=== PATIENT | female | born 1945 | race Caucasian/White ===

== ENCOUNTER → 2018-10-16 | Outpatient (CLI) | payer OTHER, MEDICARE ==
[~2018-10-16] MED LIST: REGADENOSON 0.4 MG/5 ML SYRINGE ONE
== END | disposition home or self-care (01) ==
LOC: CFH 12:19
PROVIDERS: ATTEND Internal Medicine Cardiovascular Disease
DX: I25.9 Chronic ischemic heart disease, unspecified (principal); R07.89 Other chest pain
CPT/HCPCS: 78452; 93017; A9502; J2785

== ENCOUNTER 2018-11-12 11:07 | Day surgery (SDC) | payer OTHER, MEDICARE ==
[2018-11-10 15:01] VITALS: BP 110/59
[2018-11-10 15:18] LABS: BASOPHILS # (AUTO) 0.04 x10^3/uL (0-0.1); BASOPHILS % (AUTO) 1 % (0-1); EOSINOPHILS # (AUTO) 0.03 x10^3/uL (0-0.4); EOSINOPHILS % (AUTO) 0 % (1-7); LYMPHOCYTES % (AUTO) 21 % (22-44); MD NO; MEAN CORPUSCULAR HEMOGLOBIN 32.7 pg (27.0-34.8); MEAN CORPUSCULAR HGB CONC 34.4 g/dL (32.4-35.8); MEAN PLATELET VOLUME 9.5 fL (7.4-10.4); MONOCYTES # (AUTO) 0.35 x10^3/uL (0.2-0.8); MONOCYTES % (AUTO) 5 % (2-9); NEUTROPHILS # (AUTO) 5.24 x10^3/uL (1.8-6.8); NEUTROPHILS % (AUTO) 73 % (42-75); PLATELET COUNT 181 x10^3/uL (130-400); RED BLOOD COUNT 4.68 x10^6/uL (3.82-5.3); RED CELL DISTRIBUTION WIDTH 13.4 % (9.6-15.2)
[2018-11-10 15:25] LABS: ANION GAP 5 mmol/L (5-15); CALCIUM 9.1 mg/dL (8.5-10.1); CHLORIDE 108 mmol/L (98-107); CREATININE 1.65 mg/dL (0.55-1.02)
[2018-11-10 15:59] LABS: INTERNATIONAL NORMALIZED RATIO 0.96 (0.93-1.1); PROTHROMBIN TIME 10.1 Seconds (9.6-11.5)
[~2018-11-12] VITALS: Ht 160 cm; Wt 70.5 kg
[~2018-11-12 11:07] MED LIST changes: +ASPI-496 PO; +ATOR40TA PO; +CLON0.1T22 PO; +FURO20TA3 PO; +GLIP10TA13 PO; +LOSA50TA14 PO; +POTA10TA5 PO; -REGADENOSON 0.4 MG/5 ML SYRINGE ONE; +SERT50TA28 PO; +SODIUM CHLORIDE 0.9% 1,000 ML IV SCH; +SPIR25TA5 PO
[2018-11-12] MEDS ORDERED: DIPHENHYDRAMINE 50 MG/ML, 1ML ONE (12:44)
[2018-11-12] MEDS ORDERED: FENTANYL PF 100 MCG/2ML ONE (12:44)
[2018-11-12] MEDS ORDERED: MIDAZOLAM 1 MG/ML, 2ML ONE (12:44)
[2018-11-12] MEDS ORDERED: LIDOCAINE 1%, 20ML ONE (12:44)
[2018-11-12] MEDS ORDERED: SODIUM CHLORIDE 0.9% 1,000 ML IV SCH (13:56)
== END 2018-11-12 16:35 | disposition home or self-care (01) ==
LOC: CACL 11:07
PROVIDERS: ATTEND Internal Medicine Cardiovascular Disease
DX: I25.119 Atherosclerotic heart disease of native coronary artery with unspecified angina pectoris (principal); E11.22 Type 2 diabetes mellitus with diabetic chronic kidney disease; I12.9 Hypertensive chronic kidney disease with stage 1 through stage 4 chronic kidney disease, or unspecified chronic kidney disease; N18.3 Chronic kidney disease, stage 3 (moderate); E78.2 Mixed hyperlipidemia; F17.210 Nicotine dependence, cigarettes, uncomplicated; Z79.82 Long term (current) use of aspirin; Z79.84 Long term (current) use of oral hypoglycemic drugs; Z88.5 Allergy status to narcotic agent; Z88.8 Allergy status to other drugs, medicaments and biological substances
CPT/HCPCS: 36415; 71046; 80048; 85025; 85610; 85730; 93458; 99156; C1769; C1894; J1200; J2250; J3010; J3490; Q9967

== ENCOUNTER 2018-11-23 14:44 | Inpatient (IN) | payer OTHER, MEDICARE ==
[~2018-11-23] VITALS: Ht 160 cm; Wt 70.8 kg
[~2018-11-23 14:44] MED LIST changes: -SODIUM CHLORIDE 0.9% 1,000 ML IV SCH
[2018-11-23] MEDS ORDERED: ASPIRIN 81 MG TABLET CHEW PO ONE (15:30)
[2018-11-23 15:45] LABS: BASOPHILS # (AUTO) 0.04 x10^3/uL (0-0.1); BASOPHILS % (AUTO) 1 % (0-1); EOSINOPHILS # (AUTO) 0.07 x10^3/uL (0-0.4); EOSINOPHILS % (AUTO) 1 % (1-7); LYMPHOCYTES # (AUTO) 1.81 x10^3/uL (1-3.4); LYMPHOCYTES % (AUTO) 24 % (22-44); MD NO; MEAN CORPUSCULAR HEMOGLOBIN 32.8 pg (27.0-34.8); MEAN CORPUSCULAR HGB CONC 34.6 g/dL (32.4-35.8); MEAN CORPUSCULAR VOLUME 94.8 fL (80-100); MEAN PLATELET VOLUME 9.6 fL (7.4-10.4); MONOCYTES # (AUTO) 0.48 x10^3/uL (0.2-0.8); MONOCYTES % (AUTO) 6 % (2-9); NEUTROPHILS # (AUTO) 5.21 x10^3/uL (1.8-6.8); NEUTROPHILS % (AUTO) 69 % (42-75); PLATELET COUNT 176 x10^3/uL (130-400); RED BLOOD COUNT 4.31 x10^6/uL (3.82-5.3); RED CELL DISTRIBUTION WIDTH 13.9 % (9.6-15.2)
[2018-11-23] MEDS ORDERED: ASPIRIN 81 MG TABLET CHEW ONE (15:45)
[2018-11-23 15:58] LABS: ALBUMIN 3.7 g/dL (3.4-5.0); ANION GAP 6 mmol/L (5-15); CALCIUM 8.7 mg/dL (8.5-10.1); CHLORIDE 111 mmol/L (98-107); CREATININE 1.31 mg/dL (0.55-1.02)
[2018-11-23 16:02] LABS: FREE T4 (FREE THYROXINE) 0.82 ng/dL (0.76-1.46); TROPONIN I < 0.015 ng/mL (0.000-0.045)
--- NOTE | 2018-11-23 17:00 | NUR ---
CONTINUE TO MONITOR PT. HR IN LOW 4O'S AND DROPS TO HIGH 30'S. SKIN P/W/D, A&O. CONTINUES TO HAVE CHEST PRESSURE WITH ACCOMPANYING SOB
[2018-11-23] MEDS ORDERED: GUAIFENESIN/DM 200-20MG, 10ML UDC PO PRN (17:30)
[2018-11-23] MEDS ORDERED: NITROGLYCERIN 0.4 MG/SPRAY SL PRN (17:30)
[2018-11-23] MEDS ORDERED: DOCUSATE 100 MG CAPSULE PO PRN (17:30)
[2018-11-23] MEDS ORDERED: ONDANSETRON ODT 4 MG PO PRN (17:30)
[2018-11-23] MEDS ORDERED: hydrALAzine 20 MG/ML, 1ML IVPush PRN (17:30)
[2018-11-23] MEDS ORDERED: POLYETHYLENE GLYCOL 17 GM PACKET PO PRN (17:30)
[2018-11-23] MEDS ORDERED: BISACODYL 10 MG SUPP PR PRN (17:30)
[2018-11-23] MEDS ORDERED: NITROGLYCERIN 0.4 MG BOTTLE (25 TABS) SL PRN (17:30)
--- NOTE | 2018-11-23 17:35 | NUR ---
Break RN: Pt agrees to admit. Family at bedside. Hr down to 32, aware, pt asymptomatic, states "I feel just fine" Pt hesitant to admit, but if for discussion and pt and family agree
--- NOTE | 2018-11-23 17:42 | NUR ---
hospitalist at bedside
[2018-11-23 18:06] LABS: CHOLESTEROL, TOTAL 140 mg/dL (140-239); TRIGLYCERIDES 255 mg/dL (50-200); VLDL CHOLESTEROL 51 mg/dL (0-25)
[2018-11-23 18:09] LABS: CHOL/HDL RATIO 3.6; HDL CHOL % 28 % (28-40); HDL CHOLESTEROL (DIRECT) 39 mg/dL (40-60); LDL CHOLESTEROL,CALCULATED 50 mg/dL (54-169); LDL/HDL RATIO 1.3 (0.5-3.0); TROPONIN I < 0.015 ng/mL (0.000-0.045)
--- NOTE | 2018-11-23 18:24 | NUR ---
REPORT TO LEANNE CARRERO
[2018-11-23 18:48] LABS: HEMOGLOBIN A1C 7.2 % (4.2-6.3)
[2018-11-23] MEDS: PLEASE ENTER HEIGHT AND WEIGHT MC SCH ×2 (19:20→23:30)
[2018-11-23 20:07] VITALS: BP 180/69
[2018-11-24 00:01] LABS: TROPONIN I < 0.015 ng/mL (0.000-0.045)
[2018-11-24 01:52] VITALS: BP 157/79
[2018-11-24] MEDS: ACETAMINOPHEN 325 MG TABLET PO PRN ×3 (04:56→22:22)
[2018-11-24 08:08] VITALS: BP 162/62
[2018-11-24] MEDS: SERTRALINE 50MG TABLET PO SCH (09:00)
[2018-11-24] MEDS ORDERED: SERTRALINE 100MG TABLET ONE (09:50)
[2018-11-24] MEDS: LOSARTAN 50MG TABLET PO SCH ×2 (09:54→22:22)
[2018-11-24] MEDS: ASPIRIN 81 MG TABLET EC PO SCH (09:54)
[2018-11-24] MEDS: FUROSEMIDE 20 MG TABLET PO SCH (09:55)
[2018-11-24] MEDS: POTASSIUM CHLORIDE 10 MEQ TABLET.ER PO SCH (09:55)
[2018-11-24] MEDS: SPIRONOLACTONE 25 MG TABLET PO SCH (09:55)
[2018-11-24] MEDS: SODIUM CHLORIDE 0.9% 1,000 ML IV SCH ×2 (09:59→19:37)
[2018-11-24] MEDS ORDERED: CEFAZOLIN PMX 1GM/50ML 50 ML IVPB ONE (10:00)
[2018-11-24 11:44] LABS: INTERNATIONAL NORMALIZED RATIO 0.98 (0.93-1.1); PROTHROMBIN TIME 10.3 Seconds (9.6-11.5)
[2018-11-24 13:00] VITALS: BP 154/68
[2018-11-24] MEDS ORDERED: DIPHENHYDRAMINE 50 MG/ML, 1ML ONE (13:59)
[2018-11-24] MEDS ORDERED: LIDOCAINE 1%, 20ML ONE ×2 (13:59→15:18)
[2018-11-24] MEDS ORDERED: MIDAZOLAM 1 MG/ML, 2ML ONE (13:59)
[2018-11-24] MEDS ORDERED: FENTANYL PF 100 MCG/2ML ONE (13:59)
[2018-11-24] MEDS ORDERED: CEFAZOLIN 1,000 MG ONE (14:00)
[2018-11-24 18:52] VITALS: BP 148/89
[2018-11-24] MEDS: DOXAZOSIN 2MG TABLET PO SCH (22:22)
[2018-11-24] MEDS ORDERED: OXYcodone/APAP 5/325MG TABLET PO PRN (22:30)
[2018-11-25] MEDS: SODIUM CHLORIDE 0.9% 1,000 ML IV SCH ×2 (00:58→08:57)
[2018-11-25 01:43] VITALS: BP 111/79
[2018-11-25] MEDS: ACETAMINOPHEN 325 MG TABLET PO PRN ×2 (05:38→11:42)
[2018-11-25 06:49] VITALS: BP 108/74
[2018-11-25] MEDS: SPIRONOLACTONE 25 MG TABLET PO SCH (08:56)
[2018-11-25] MEDS: DOXAZOSIN 2MG TABLET PO SCH (08:56)
[2018-11-25] MEDS: FUROSEMIDE 20 MG TABLET PO SCH (08:56)
[2018-11-25] MEDS: LOSARTAN 50MG TABLET PO SCH ×2 (08:56→09:00)
[2018-11-25] MEDS: POTASSIUM CHLORIDE 10 MEQ TABLET.ER PO SCH (08:56)
[2018-11-25] MEDS: ASPIRIN 81 MG TABLET EC PO SCH (08:56)
[2018-11-25] MEDS: SERTRALINE 50MG TABLET PO SCH (08:57)
[2018-11-25] MEDS ORDERED: NITR0.4T SL (13:32)
[2018-11-25] MEDS ORDERED: DOXA2TAB9 PO (13:32)
[2018-11-25] MEDS ORDERED: LOSA50TA2 PO (13:32)
[2018-11-25] MEDS ORDERED: METO25TA91 PO (13:32)
[2018-11-25 14:10] VITALS: BP 106/65
[2018-11-25] MEDS ORDERED: METOPROLOL SUCCINATE 25 MG TAB.ER.24H PO SCH (18:00)
== END 2018-11-25 18:24 | disposition home or self-care (01) | DRG 243 ==
LOC: ED 15:13 → EDIP 17:27 → 5SO 18:48
PROVIDERS: ADMIT Internal Medicine; ATTEND Internal Medicine
PROC: 02H63JZ Insertion of Pacemaker Lead into Right Atrium, Percutaneous Approach (ICD-10-PCS; principal; 2018-11-24)
PROC: 02HK3JZ Insertion of Pacemaker Lead into Right Ventricle, Percutaneous Approach (ICD-10-PCS; 2018-11-24)
PROC: 0JH606Z Insertion of Pacemaker, Dual Chamber into Chest Subcutaneous Tissue and Fascia, Open Approach (ICD-10-PCS; 2018-11-24)
DX: R00.1 Bradycardia, unspecified (principal); I25.110 Atherosclerotic heart disease of native coronary artery with unstable angina pectoris; E11.9 Type 2 diabetes mellitus without complications; E78.5 Hyperlipidemia, unspecified; F17.210 Nicotine dependence, cigarettes, uncomplicated; I11.9 Hypertensive heart disease without heart failure; J44.9 Chronic obstructive pulmonary disease, unspecified; Z85.820 Personal history of malignant melanoma of skin; Z88.8 Allergy status to other drugs, medicaments and biological substances; Z88.5 Allergy status to narcotic agent
CPT/HCPCS: 33208; 36415; 71045; 80048; 80061; 82040; 83036; 84439; 84443; 84484; 85025; 85610; 93005; 99156; 99157; 99285; C1779; C1785; C1892; G0378; J0690; J2250; J3010; J3490; J1200; J7030

== ENCOUNTER → 2020-06-27 | Outpatient (CLI) | payer OTHER, MEDICARE ==
[~2020-06-27] MED LIST changes: +DOXA2TAB9 PO; +LOSA50TA2 PO; +METO25TA91 PO; +NITR0.4T41 SL; +REGADENOSON 0.4 MG/5 ML SYRINGE ONE
== END | disposition home or self-care (01) ==
LOC: CFH 08:43
PROVIDERS: ATTEND Physician Assistant Medical
DX: I10 Essential (primary) hypertension (principal); I25.10 Atherosclerotic heart disease of native coronary artery without angina pectoris
CPT/HCPCS: 78452; 93017; A9502; J2785

== ENCOUNTER 2020-12-05 10:02 | Outpatient (CLI) | payer OTHER, MEDICARE ==
[~2020-12-05 10:02] MED LIST changes: -REGADENOSON 0.4 MG/5 ML SYRINGE ONE
== END 2020-12-05 23:59 | disposition home or self-care (01) ==
LOC: CFH 10:02
PROVIDERS: ATTEND Family Medicine
DX: Z12.2 Encounter for screening for malignant neoplasm of respiratory organs (principal); I77.810 Thoracic aortic ectasia; J98.4 Other disorders of lung; M19.09 Primary osteoarthritis, other specified site; M51.34 Other intervertebral disc degeneration, thoracic region; I25.10 Atherosclerotic heart disease of native coronary artery without angina pectoris; I70.0 Atherosclerosis of aorta; J98.11 Atelectasis; Z87.891 Personal history of nicotine dependence
CPT/HCPCS: 71271